=== PATIENT | male | born 2000 | race Caucasian/White ===

== ENCOUNTER 2018-09-30 19:43 | Emergency (ER) | payer SELFPAY ==
[~2018-09-30] VITALS: Ht 177.8 cm; Wt 63.5 kg
[2018-09-30 19:50] VITALS: BP 133/82
[2018-09-30] MEDS: IBUPROFEN 600 MG TAB PO ONE (20:31)
[2018-09-30] MEDS: KETOROLAC 30 MG/ML VIAL IM ONE (20:33)
[2018-09-30 21:02] VITALS: BP 133/82
== END 2018-09-30 21:02 | disposition home or self-care (01) ==
LOC: MED 19:43
DX: S62.615A Displaced fracture of proximal phalanx of left ring finger, initial encounter for closed fracture (principal); X58.XXXA Exposure to other specified factors, initial encounter; Y93.89 Activity, other specified; Y92.89 Other specified places as the place of occurrence of the external cause; Y99.8 Other external cause status
CPT/HCPCS: 29130; 73140; 96372; 99284; J1885; Q0092